=== PATIENT | female | born 1935 | race Two or more races ===

== ENCOUNTER → 2018-08-30 | Emergency (ER) | payer OTHER ==
[~2018-08-30] VITALS: Ht 162.6 cm; Wt 70.8 kg
[~2018-08-30] MED LIST: 8HR ARTHRITIS650 MG PO; ACETAMINOPHEN500 M1; ISOSORBIDE DINI30 MG; LIDODERM1 EACH TD; NEURONTIN800 MG PO; PERCOCET 5-3251 EACH PO; TIZANIDINE HCL2 MG PO
== END | disposition home or self-care (01) ==
LOC: ER 10:38
DX: S13.4XXA Sprain of ligaments of cervical spine, initial encounter (principal); M54.2 Cervicalgia; V49.9XXA Car occupant (driver) (passenger) injured in unspecified traffic accident, initial encounter; Y93.89 Activity, other specified; Y92.488 Other paved roadways as the place of occurrence of the external cause; Y99.8 Other external cause status